=== PATIENT | male | born 1950 | race Caucasian/White ===

== ENCOUNTER 2017-07-16 11:18 | Inpatient (IN) | payer OTHER ==
[~2017-07-16] VITALS: Ht 165.1 cm; Wt 85.0 kg
[2017-07-16 12:04] LABS: MEAN CORPUSCULAR HEMOGLOBIN 30.4 pg (27.5-34.5); MEAN CORPUSCULAR HGB CONC 33.2 g/dL (33.2-36.2); MEAN CORPUSCULAR VOLUME 91.4 fL (81-97); MEAN PLATELET VOLUME 8.9 fL (7.4-10.4); PLATELET COUNT 227 x10^3/uL (130-400); RED BLOOD COUNT 5.24 x10^6/uL (4.38-5.82); RED CELL DISTRIBUTION WIDTH 14.3 % (9.4-14.8)
[2017-07-16 12:13] LABS: ALBUMIN 3.5 g/dL (3.4-5.0); ANION GAP 9 mmol/L (5-15); CALCIUM 8.4 mg/dL (8.5-10.1); CHLORIDE 104 mmol/L (98-107)
[2017-07-16 12:17] LABS: ALANINE AMINOTRANSFERASE 12 U/L (12-78); ALKALINE PHOSPHATASE 77 U/L (45-117); BILIRUBIN,TOTAL 1.3 mg/dL (0.2-1.0); CREATININE 1.08 mg/dL (0.7-1.3); TOTAL PROTEIN 7.8 g/dL (6.4-8.2)
[2017-07-16 12:40] LABS: BASOPHILS # (AUTO) 0.02 x10^3/uL (0-0.1); BASOPHILS % (AUTO) 0 % (0-1); EOSINOPHILS # (AUTO) 0.07 x10^3/uL (0-0.4); EOSINOPHILS % (AUTO) 0 % (1-7); LYMPHOCYTES # (AUTO) 1.18 x10^3/uL (1-3.4); LYMPHOCYTES % (AUTO) 6 % (22-44); MD SCAN; MONOCYTES # (AUTO) 0.89 x10^3/uL (0.2-0.8); MONOCYTES % (AUTO) 5 % (2-9); NEUTROPHILS # (AUTO) 17.04 x10^3/uL (1.8-6.8); NEUTROPHILS % (AUTO) 89 % (42-75)
[2017-07-16] MEDS ORDERED: LIDOCAINE 2%,20 ML JEL.PF.APP MM ONE ×2 (13:13→13:30)
[2017-07-16] MEDS ORDERED: MORPHINE SULFATE 4 MG/ML, 1ML ONE (13:56)
[2017-07-16] MEDS ORDERED: ONDANSETRON 2MG/ML, 2ML IVPush ONE (14:00)
[2017-07-16] MEDS ORDERED: morphine SULFATE 10 MG/ML, 1ML IVPush ONE (14:00)
[2017-07-16 14:03] LABS: MICROSCOPIC INDICATED
[2017-07-16 14:04] LABS: CULTURE INDICATED? YES
[2017-07-16] MEDS ORDERED: CEFTRIAXONE PMX 1GM/50ML 50 ML IV ONE (14:30)
[2017-07-16] MEDS ORDERED: SODIUM CHLORIDE 0.9% 1,000ML IVBOLUS ONE (14:30)
[2017-07-16] MEDS ORDERED: CANA300T PO (14:46)
[2017-07-16] MEDS ORDERED: INSU300I SQ (14:46)
[2017-07-16] MEDS ORDERED: SITA100T PO (14:46)
[2017-07-16] MEDS ORDERED: IRBE300T16 PO (14:46)
[2017-07-16] MEDS ORDERED: HYDR25TA6 PO (14:46)
[2017-07-16] MEDS ORDERED: APIX5TAB PO (14:46)
[2017-07-16] MEDS ORDERED: ATOR40TA PO (14:46)
[2017-07-16] MEDS ORDERED: INSU100C5 SQ-INSULIN (14:46)
[2017-07-16] MEDS ORDERED: AMLO10TA2 PO (14:46)
[2017-07-16] MEDS ORDERED: METO50TA4 PO (14:46)
[2017-07-16] MEDS ORDERED: CEFTRIAXONE PMX 1GM/50ML 50 ML ONE (14:55)
[2017-07-16 15:30] VITALS: BP 177/83
[2017-07-16] MEDS ORDERED: SODIUM CHLORIDE 0.9% 1,000 ML IV SCH ×2 (17:00→17:35)
[2017-07-16] MEDS ORDERED: POLYETHYLENE GLYCOL 17 GM PACKET PO PRN (18:00)
[2017-07-16] MEDS ORDERED: ONDANSETRON 2MG/ML, 2ML IVPush PRN (18:00)
[2017-07-16] MEDS ORDERED: morphine SULFATE 10 MG/ML, 1ML IVPush PRN (18:00)
[2017-07-16] MEDS ORDERED: ACETAMINOPHEN 325 MG TABLET PO PRN (18:00)
[2017-07-16] MEDS: INSULIN ASPART 100 UNITS/ML, PEN SQ-INSULIN SCH ×2 (18:00→20:48)
[2017-07-16] MEDS ORDERED: hydrALAzine 20 MG/ML, 1ML IVPush PRN (18:00)
[2017-07-16] MEDS ORDERED: HYDROcodone/APAP 5/325 TABLET PO PRN (18:00)
[2017-07-16] MEDS ORDERED: CEFTRIAXONE PMX 2GM/50ML 50 ML IV SCH (18:00)
[2017-07-16] MEDS ORDERED: ENOXAPARIN 40 MG/0.4 ML SQ SCH (18:00)
[2017-07-16 18:23] LABS: FREE T4 (FREE THYROXINE) 1.07 ng/dL (0.76-1.46); THYROID STIMULATING HORMONE 1.03 mIU/L (0.358-3.740)
[2017-07-16 18:50] VITALS: BP 150/78
[2017-07-16 18:59] LABS: MEAN CORPUSCULAR VOLUME 91.2 fL (81-97); MEAN PLATELET VOLUME 9.5 fL (7.4-10.4); PLATELET COUNT 222 x10^3/uL (130-400); RED BLOOD COUNT 5.12 x10^6/uL (4.38-5.82); RED CELL DISTRIBUTION WIDTH 14.4 % (9.4-14.8)
[2017-07-16 19:14] LABS: BASOPHILS # (AUTO) 0.02 x10^3/uL (0-0.1); BASOPHILS % (AUTO) 0 % (0-1); EOSINOPHILS # (AUTO) 0.06 x10^3/uL (0-0.4); EOSINOPHILS % (AUTO) 0 % (1-7); LYMPHOCYTES # (AUTO) 1.84 x10^3/uL (1-3.4); LYMPHOCYTES % (AUTO) 9 % (22-44); MD SCAN; MONOCYTES # (AUTO) 1.81 x10^3/uL (0.2-0.8); MONOCYTES % (AUTO) 8 % (2-9); NEUTROPHILS # (AUTO) 17.74 x10^3/uL (1.8-6.8); NEUTROPHILS % (AUTO) 83 % (42-75)
[2017-07-16 19:17] VITALS: BP 150/78
[2017-07-16] MEDS: ATORVASTATIN 40 MG TABLET PO SCH (20:42)
[2017-07-16] MEDS ORDERED: TEMAZEPAM 15 MG CAPSULE PO PRN (21:00)
[2017-07-16] MEDS ORDERED: INSULIN DETEMIR 100 UNITS/ML, PEN SQ-INSULIN SCH (21:00)
[2017-07-17] MEDS ORDERED: PNEUMOCOCCAL 23 VACCINE IM-VACC ONE (02:00)
[2017-07-17 02:44] VITALS: BP 170/76
[2017-07-17 05:01] LABS: ANION GAP 7 mmol/L (5-15); CHLORIDE 104 mmol/L (98-107)
[2017-07-17 05:04] LABS: CALCIUM 8.5 mg/dL (8.5-10.1); CREATININE 0.97 mg/dL (0.7-1.3)
[2017-07-17] MEDS: INSULIN ASPART 100 UNITS/ML, PEN SQ-INSULIN SCH ×4 (07:00→21:00)
[2017-07-17 07:29] VITALS: BP 157/81
[2017-07-17] MEDS: APIXABAN 5 MG TABLET PO SCH ×2 (09:00→21:00)
[2017-07-17] MEDS: INSULIN DETEMIR 100 UNITS/ML, PEN SQ-INSULIN SCH ×2 (09:00→21:41)
[2017-07-17] MEDS: AMLODIPINE 5 MG TABLET PO SCH (09:00)
[2017-07-17] MEDS: IRBESARTAN 300 MG TABLET PO SCH (09:00)
[2017-07-17] MEDS: HYDROCHLOROTHIAZIDE 25 MG TABLET PO SCH (09:00)
[2017-07-17] MEDS: METOPROLOL SUCCINATE 50 MG TAB.ER.24H PO SCH (09:00)
[2017-07-17 14:01] VITALS: BP 144/73
[2017-07-17] MEDS: CEFTRIAXONE PMX 2GM/50ML 50 ML IV SCH (15:33)
[2017-07-17 19:16] VITALS: BP 149/80
[2017-07-17] MEDS: ATORVASTATIN 40 MG TABLET PO SCH (21:00)
[2017-07-18 01:24] VITALS: BP 145/78
[2017-07-18 06:57] VITALS: BP 141/80
[2017-07-18] MEDS: INSULIN ASPART 100 UNITS/ML, PEN SQ-INSULIN SCH ×4 (08:03→20:20)
[2017-07-18] MEDS: METOPROLOL SUCCINATE 50 MG TAB.ER.24H PO SCH (09:50)
[2017-07-18] MEDS: APIXABAN 5 MG TABLET PO SCH ×2 (09:51→20:20)
[2017-07-18] MEDS: IRBESARTAN 300 MG TABLET PO SCH (09:51)
[2017-07-18] MEDS: AMLODIPINE 5 MG TABLET PO SCH (09:51)
[2017-07-18] MEDS: HYDROCHLOROTHIAZIDE 25 MG TABLET PO SCH (09:51)
[2017-07-18] MEDS: INSULIN DETEMIR 100 UNITS/ML, PEN SQ-INSULIN SCH ×2 (09:52→20:20)
[2017-07-18 14:24] VITALS: BP 125/72
[2017-07-18] MEDS: CEFTRIAXONE PMX 2GM/50ML 50 ML IV SCH (14:51)
[2017-07-18 19:22] VITALS: BP 125/89
[2017-07-18] MEDS: ATORVASTATIN 40 MG TABLET PO SCH (20:20)
[2017-07-19 01:19] VITALS: BP 123/74
[2017-07-19 05:21] LABS: BASOPHILS # (AUTO) 0.07 x10^3/uL (0-0.1); BASOPHILS % (AUTO) 1 % (0-1); EOSINOPHILS # (AUTO) 0.31 x10^3/uL (0-0.4); EOSINOPHILS % (AUTO) 2 % (1-7); LYMPHOCYTES # (AUTO) 1.84 x10^3/uL (1-3.4); LYMPHOCYTES % (AUTO) 14 % (22-44); MD NO; MEAN CORPUSCULAR HEMOGLOBIN 31.1 pg (27.5-34.5); MEAN CORPUSCULAR HGB CONC 33.8 g/dL (33.2-36.2); MEAN CORPUSCULAR VOLUME 92.1 fL (81-97); MEAN PLATELET VOLUME 9.2 fL (7.4-10.4); MONOCYTES # (AUTO) 1.33 x10^3/uL (0.2-0.8); MONOCYTES % (AUTO) 10 % (2-9); NEUTROPHILS # (AUTO) 9.43 x10^3/uL (1.8-6.8); NEUTROPHILS % (AUTO) 73 % (42-75); PLATELET COUNT 246 x10^3/uL (130-400); RED BLOOD COUNT 5.05 x10^6/uL (4.38-5.82); RED CELL DISTRIBUTION WIDTH 14.5 % (9.4-14.8)
[2017-07-19 05:51] LABS: ALANINE AMINOTRANSFERASE 12 U/L (12-78); ALBUMIN 2.9 g/dL (3.4-5.0); CALCIUM 9.3 mg/dL (8.5-10.1); CREATININE 0.85 mg/dL (0.7-1.3)
[2017-07-19 06:37] LABS: ALKALINE PHOSPHATASE 74 U/L (45-117); ANION GAP 11 mmol/L (5-15); BILIRUBIN,TOTAL 0.8 mg/dL (0.2-1.0); CHLORIDE 102 mmol/L (98-107); TOTAL PROTEIN 7.9 g/dL (6.4-8.2)
[2017-07-19 07:21] VITALS: BP 124/74
[2017-07-19] MEDS ORDERED: POTASSIUM CHLORIDE 20 MEQ TAB.ER.PRT PO ONE (08:30)
[2017-07-19] MEDS: AMLODIPINE 5 MG TABLET PO SCH (09:12)
[2017-07-19] MEDS: IRBESARTAN 300 MG TABLET PO SCH (09:13)
[2017-07-19] MEDS: APIXABAN 5 MG TABLET PO SCH ×2 (09:13→20:34)
[2017-07-19] MEDS: HYDROCHLOROTHIAZIDE 25 MG TABLET PO SCH (09:13)
[2017-07-19] MEDS: POTASSIUM CHLORIDE 20 MEQ TAB.ER.PRT PO SCH ×2 (09:13→12:09)
[2017-07-19] MEDS: METOPROLOL SUCCINATE 50 MG TAB.ER.24H PO SCH (09:14)
[2017-07-19] MEDS: INSULIN ASPART 100 UNITS/ML, PEN SQ-INSULIN SCH ×4 (09:15→20:35)
[2017-07-19] MEDS: INSULIN DETEMIR 100 UNITS/ML, PEN SQ-INSULIN SCH ×2 (09:15→20:35)
[2017-07-19 12:55] VITALS: BP 126/70
[2017-07-19] MEDS ORDERED: LACT1CAP24 PO (13:00)
[2017-07-19] MEDS ORDERED: LEVO500T47 PO (13:00)
[2017-07-19 13:55] LABS: ANION GAP 10 mmol/L (5-15); CALCIUM 9.3 mg/dL (8.5-10.1); CHLORIDE 96 mmol/L (98-107)
[2017-07-19 13:56] LABS: CREATININE 1.23 mg/dL (0.7-1.3)
[2017-07-19] MEDS: CEFTRIAXONE PMX 2GM/50ML 50 ML IV SCH (15:00)
[2017-07-19] MEDS ORDERED: LIDOCAINE GEL 2%, 5ML TP ONE (18:17)
[2017-07-19 19:41] VITALS: BP 142/90
[2017-07-19] MEDS: ATORVASTATIN 40 MG TABLET PO SCH (20:34)
[2017-07-19] MEDS ORDERED: TAMSULOSIN 0.4 MG CAP.ER.24H PO SCH (22:30)
[2017-07-20 01:40] VITALS: BP 110/69
[2017-07-20 05:14] LABS: CALCIUM 8.7 mg/dL (8.5-10.1); CHLORIDE 100 mmol/L (98-107)
[2017-07-20 05:18] LABS: ANION GAP 7 mmol/L (5-15); CREATININE 1.01 mg/dL (0.7-1.3)
[2017-07-20] MEDS: INSULIN ASPART 100 UNITS/ML, PEN SQ-INSULIN SCH (07:00)
[2017-07-20 08:00] VITALS: BP 122/77
[2017-07-20] MEDS: AMLODIPINE 5 MG TABLET PO SCH (09:00)
[2017-07-20] MEDS: APIXABAN 5 MG TABLET PO SCH (09:00)
[2017-07-20] MEDS: INSULIN DETEMIR 100 UNITS/ML, PEN SQ-INSULIN SCH (09:00)
[2017-07-20] MEDS: METOPROLOL SUCCINATE 50 MG TAB.ER.24H PO SCH (09:00)
[2017-07-20] MEDS: IRBESARTAN 300 MG TABLET PO SCH (09:00)
[2017-07-20] MEDS: HYDROCHLOROTHIAZIDE 25 MG TABLET PO SCH (09:00)
[2017-07-20] MEDS ORDERED: LIDOCAINE GEL 2%, 5ML TP STA (10:29)
[2017-07-20 14:30] VITALS: BP 138/77
[2017-07-20] MEDS ORDERED: TAMS-11 PO (14:54)
[2017-07-20] MEDS ORDERED: TAMSULOSIN 0.4 MG CAP.ER.24H PO SCH (18:30)
== END 2017-07-20 17:02 | disposition home or self-care (01) | DRG 872 ==
LOC: ED 13:13 → 3NE 14:29 → DCLOUNGE 07-20 16:46
PROVIDERS: ADMIT Internal Medicine; ATTEND Internal Medicine
PROC: 0T9B70Z Drainage of Bladder with Drainage Device, Via Natural or Artificial Opening (ICD-10-PCS; principal; 2017-07-16)
DX: A41.2 Sepsis due to unspecified staphylococcus (principal); D68.69 Other thrombophilia; I48.91 Unspecified atrial fibrillation; N10 Acute pyelonephritis; R79.89 Other specified abnormal findings of blood chemistry; E11.9 Type 2 diabetes mellitus without complications; E78.5 Hyperlipidemia, unspecified; E87.6 Hypokalemia; I10 Essential (primary) hypertension; I25.10 Atherosclerotic heart disease of native coronary artery without angina pectoris; Z79.01 Long term (current) use of anticoagulants; Z90.49 Acquired absence of other specified parts of digestive tract; Z95.5 Presence of coronary angioplasty implant and graft
CPT/HCPCS: 36415; 51702; 80048; 80053; 81001; 82962; 83605; 84153; 84439; 84443; 85025; 87040; 87077; 87086; 87186; 90732; 96374; J0696; J1815; J2270; J7030

== ENCOUNTER → 2018-12-10 | Outpatient (CLI) | payer MEDICARE ==
[~2018-12-10] MED LIST: AMLO10TA8 PO; APIX5TAB PO; ATOR40TA PO; CANA300T PO; HYDR25TA6 PO; INSU100C5 SQ-INSULIN; INSU300I SQ; IRBE300T16 PO; LACT1CAP24 PO; LEVO500T47 PO; METO50TA4 PO; SITA100T PO; TAMS-11 PO
== END | disposition home or self-care (01) ==
LOC: CFH 09:22
PROVIDERS: ATTEND Internal Medicine Cardiovascular Disease
DX: I34.0 Nonrheumatic mitral (valve) insufficiency (principal); I10 Essential (primary) hypertension; I25.10 Atherosclerotic heart disease of native coronary artery without angina pectoris; I48.0 Paroxysmal atrial fibrillation; E78.5 Hyperlipidemia, unspecified; I25.2 Old myocardial infarction
CPT/HCPCS: 93306

== ENCOUNTER → 2018-12-27 | Outpatient (CLI) | payer MEDICARE ==
[~2018-12-27] MED LIST changes: +REGADENOSON 0.4 MG/5 ML SYRINGE ONE
== END | disposition home or self-care (01) ==
LOC: CFH 12:56
PROVIDERS: ATTEND Nurse Practitioner Family
DX: I48.0 Paroxysmal atrial fibrillation (principal); I10 Essential (primary) hypertension
CPT/HCPCS: 78452; 93017; A9502; J2785

== ENCOUNTER 2020-05-01 05:47 | Day surgery (SDC) | payer MEDICARE ==
[~2020-05-01] VITALS: Ht 165.1 cm; Wt 85.5 kg
[~2020-05-01 05:47] MED LIST changes: -IRBE300T16 PO; +IRBE300T8 PO; -REGADENOSON 0.4 MG/5 ML SYRINGE ONE
[2020-05-01 06:14] VITALS: BP 95/68
[2020-05-01] MEDS ORDERED: INSU100I40 SQ (06:24)
[2020-05-01] MEDS ORDERED: SOTA80TA8 PO (06:27)
[2020-05-01] MEDS ORDERED: KETO30CR TP (06:27)
[2020-05-01] MEDS ORDERED: TAMS-11 PO (06:27)
[2020-05-01 06:34] LABS: BASOPHILS % (AUTO) 1 % (0-1); EOSINOPHILS % (AUTO) 4 % (1-7); LYMPHOCYTES % (AUTO) 16 % (22-44); MEAN CORPUSCULAR HEMOGLOBIN 30.8 pg (27.5-34.5); MEAN CORPUSCULAR HGB CONC 32.9 g/dL (33.2-36.2); MEAN PLATELET VOLUME 9.5 fL (7.4-10.4); MONOCYTES % (AUTO) 9 % (2-9); NEUTROPHILS % (AUTO) 69 % (42-75); PLATELET COUNT 202 x10^3/uL (130-400); RED BLOOD COUNT 5.03 x10^6/uL (4.38-5.82); RED CELL DISTRIBUTION WIDTH 14.5 % (9.4-14.8)
[2020-05-01 06:42] LABS: MD NO
[2020-05-01 06:44] LABS: ANION GAP 6 mmol/L (5-15); CALCIUM 8.8 mg/dL (8.5-10.1); CHLORIDE 105 mmol/L (98-107); CREATININE 1.16 mg/dL (0.7-1.3)
[2020-05-01] MEDS ORDERED: METO25TA91 PO ×2 (07:13)
[2020-05-01] MEDS ORDERED: PROPOFOL 10 MG/ML, 20ML ONE (07:28)
[2020-05-01] MEDS ORDERED: SOTA80TA PO (08:37)
== END 2020-05-01 08:49 | disposition home or self-care (01) ==
LOC: CACL 05:47
PROVIDERS: ATTEND Internal Medicine Cardiovascular Disease
DX: I48.0 Paroxysmal atrial fibrillation (principal); I10 Essential (primary) hypertension; I25.2 Old myocardial infarction; E78.2 Mixed hyperlipidemia; E11.9 Type 2 diabetes mellitus without complications; N40.0 Benign prostatic hyperplasia without lower urinary tract symptoms; F17.210 Nicotine dependence, cigarettes, uncomplicated; Z79.01 Long term (current) use of anticoagulants; Z79.84 Long term (current) use of oral hypoglycemic drugs; Z79.899 Other long term (current) drug therapy; Z88.8 Allergy status to other drugs, medicaments and biological substances; Z95.5 Presence of coronary angioplasty implant and graft
CPT/HCPCS: 36415; 80048; 85025; 92960; 93005; J2704

== ENCOUNTER → 2021-01-19 | Outpatient (CLI) | payer MEDICARE ==
[~2021-01-19] MED LIST changes: +AMLO-211 PO; -AMLO10TA8 PO; +INSU100I40 SQ; +KETO30CR TP; +METO25TA91 PO; +SOTA80TA PO; +SOTA80TA8 PO
== END | disposition home or self-care (01) ==
LOC: CVU 10:21
PROVIDERS: ATTEND Nurse Practitioner Family
DX: I35.8 Other nonrheumatic aortic valve disorders (principal); I11.9 Hypertensive heart disease without heart failure; I25.10 Atherosclerotic heart disease of native coronary artery without angina pectoris
CPT/HCPCS: 93306